=== PATIENT | female | born 1995 | race Caucasian/White ===

== ENCOUNTER 2020-12-16 11:57 | Outpatient (REF) | payer OTHER, SELFPAY | END 2020-12-16 11:58 | disposition home or self-care (01) | LOC: HO.LAB 11:57 | PROVIDERS: Visit Provider Internal Medicine | DX: Z20.822 Contact with and (suspected) exposure to COVID-19 (principal) | CPT/HCPCS: C9803; U0003; U0005 ==

== ENCOUNTER 2021-10-12 10:33 | Outpatient (REF) | payer OTHER, SELFPAY ==
[2021-10-12 11:27] LABS: COVID-19 Test Negative (Negative); IDNOW Serial# 08D9AD1C
== END 2021-10-12 10:34 | disposition home or self-care (01) ==
LOC: HO.LAB 10:33
PROVIDERS: Visit Provider Internal Medicine
DX: Z20.822 Contact with and (suspected) exposure to COVID-19 (principal)
CPT/HCPCS: 87635; C9803

== ENCOUNTER 2022-05-17 08:42 | Emergency (ER) | payer OTHER, SELFPAY ==
[2022-05-17 09:10] VITALS: BP 160/106; PULSE 115; RESP 20; TEMP 36.4; O2SAT 97; BMI 24.5
== END 2022-05-17 13:02 | disposition left against medical advice (07) ==
PROVIDERS: Emergency Provider Emergency Medicine
DX: F32.A Depression, unspecified (principal)
CPT/HCPCS: 99281

== ENCOUNTER 2023-08-30 13:04 | Outpatient (AMB) | payer OTHER, SELFPAY ==
[2023-08-30 13:16] VITALS: BP 120/70; PULSE 76; TEMP 36.6; O2SAT 98; BMI 26.8
--- NOTE | 2023-08-30 13:16 | AM.OFFWIN_ITS ---
Intake Vital Signs 08/30/23 13:16 Height 5 ft 1 in Weight 142 lb BMI 26.8 BP 120/70 Blood Pressure Location Rt brachial Position Sitting Pulse 76 Pulse Source Pulse Oximeter Temp 97.8 F Temp Source Temporal Artery Scan Pulse Oximetry (%) 98 Intake Visit Reasons: [employer] AB pain/Frequent urination Intake Note: pt is here for abd pain with frequent urination. at home negative test Patient Tobacco Use Status: Never used Tobacco Allergies No Known Allergies [No Known Allergies*] Allergy (Verified 08/30/23 13:16) Do you need a note to return to daycare/school/sports/work: No HPI HPI Comments History of Present Illness Details Patient is a 27-year-old female complaining of abdominal pain and watery, yellow diarrhea times 3 days. She states she is having upper central abdominal pain and bloating which is getting worse. She denies any recent antibiotic use or travel outside of the country. She states she normally drinks 82 oz of water per day and eats a relatively healthy diet however, 3 days ago she ate some very rich foods and she just attributed the diarrhea to that but it not resolving with going back to her normal diet. She states anything she eats, she has diarrhea right away. She denies any history of heavy alcohol use or gallstones. She states she took a test at home and it was negative. [facility] Social History (System 01/19/23 @ 13:10 by Ayaka Kellogg) Patient Tobacco Use Status: Never used Tobacco Review of Systems Const All systems reviewed & are unremarkable except as noted in HPI and below Physical Exam Vital Signs: Last Vital Signs Temp 97.8 F 08/30/23 13:16 Pulse 76 08/30/23 13:16 BP 120/70 08/30/23 13:16 Pulse Ox 98 08/30/23 13:16 BMI result Body Mass Index 26.8 Const General: cooperative, healthy appearing, comfortable, no acute distress and well developed Orientation/consciousness: patient oriented x3 Limitations: no limitations HEENT Head: Yes normal to inspection Eyes General: appearance normal, both eyes and all related structures Neck Neck: Yes normal visual inspection and Yes full ROM Resp Effort & Inspection: normal respiratory effort and able to speak in complete sentences GI Inspection: Yes normal to inspection Palpation (GI): Soft to palpation, Tenderness to palpation present (GI) in the epigastrum; Santillan's sign negative and no guarding Auscultation: normal bowel sounds Skin General skin exam: no rashes or lesions noted Neuro General: patient oriented x3 Extrem General: Yes normal to inspection Results AMB Urinalysis, Automated UA Leukoctes 0 Chuckie/uL Last Edit by Slick Mercer CMA on 08/30/23 13:35 UA Nitrite Negative Last Edit by Slick Mercer CMA on 08/30/23 13:35 UA Urobilinogen 0.2 mg/dL Last Edit by Slick Mercer CMA on 08/30/23 13 :35 UA Protein 0 mg/dL Last Edit by Slick Mercer CMA on 08/30/23 13:35 UA pH 6.0 Last Edit by Slick Mercer CMA on 08/30/23 13:35 UA Blood 0 Marko/uL Last Edit by Slick Mercer CMA on 08/30/23 13:35 UA Specific [place] 1.015 Last Edit by Slick Mercer CMA on 08/30/23 13:35 UA Ketone Negative Last Edit by Slick Mercer CMA on 08/30/23 13:35 UA Bilirubin 0 mg/dL Last Edit by Slick Mercer CMA on 08/30/23 13:35 UA Glucose 0 mg/dL Last Edit by Slick Mercer CMA on 08/30/23 13:35 AMB Test Urine AMB Test Urine Negative Last Edit by Slick Mercer CMA on 08/30/23 13:35 Results Reviewed Results Reviewed: test was negative, urinalysis was negative Assessment & Plan Assessment & Plan (1) Abdominal pain in female: Code(s): R10.9 - Unspecified abdominal pain Plan: Vital signs are stable, patient is well-appearing, she was given red flag warning signs and when to seek emergency medical attention. We will get a GI panel, sent home with patient with instructions. Recommended staying hydrated by alternating with Pedialyte and water and BRAT diet explained. Plan See above Orders: Orders AMB Urinalysis Automated Today Z13.9 - Encounter for screening, unspecified AMB HCG Urine Test Today Z13.9 - Encounter for screening, unspecified GI Panel Today R19.7 - Diarrhea, unspecified Coding Level of Care Code New Pt Level 4 (95717) Diagnoses Abdominal pain in female R10.9
== END 2023-08-30 14:26 | disposition home or self-care (01) ==
PROVIDERS: Visit Provider Physician Assistant
DX: R10.9 Unspecified abdominal pain (principal); Z32.02 Encounter for pregnancy test, result negative
CPT/HCPCS: 81003; 81025; 99204

== ENCOUNTER 2023-08-30 17:53 | Outpatient (REF) | payer OTHER, SELFPAY ==
[2023-08-31 09:42] LABS: Adenovirus F 40/41 Not Detected (Not Detect.); Astrovirus Not Detected (Not Detect.); Campylobacter Not Detected (Not Detect.); Cryptosporidium Not Detected (Not Detect.); Cyclospora cayetanensis Not Detected (Not Detect.); E. coli EAEC Not Detected (Not Detect.); E. coli EPEC Not Detected (Not Detect.); E. coli ETEC Not Detected (Not Detect.); E. coli STEC Not Detected (Not Detect.); Entamoeba histolytica Not Detected (Not Detect.); Giardia lamblia Not Detected (Not Detect.); Plesiomonas shigelloides Not Detected (Not Detect.); Rotavirus A Not Detected (Not Detect.); Salmonella Not Detected (Not Detect.); Sapovirus Not Detected (Not Detect.); Shigella sp./EIEC Not Detected (Not Detect.); Vibrio Not Detected (Not Detect.); Vibrio Cholerae Not Detected (Not Detect.); Yersinia enterocolitica Not Detected (Not Detect.)
[2023-09-02 14:19] LABS: Norovirus Stool PCR NOT DETECTED
== END 2023-08-30 17:54 | disposition home or self-care (01) ==
LOC: HO.LNP 17:53
PROVIDERS: Visit Provider Physician Assistant
DX: R19.7 Diarrhea, unspecified (principal)
CPT/HCPCS: 87507

== ENCOUNTER 2023-09-02 10:41 | Outpatient (AMB) | payer OTHER, SELFPAY ==
--- NOTE | 2023-09-02 10:37 | AM.OFFWIN_ITS ---
Intake Vital Signs 09/02/23 10:38 Height 5 ft 1 in Weight 143 lb BMI 27.0 BP 120/76 Blood Pressure Location Lt brachial Position Sitting Temp 97.7 F Temp Source Temporal Artery Scan Intake Visit Reasons: EP ABD pain, blood in stool Intake Note: pt is here today for ABD pain blood in stool started tuesday Patient Tobacco Use Status: Never used Tobacco Allergies No Known Allergies [No Known Allergies*] Allergy (Verified 09/02/23 10:48) Do you need a note to return to daycare/school/sports/work: Yes HPI HPI Comments History of Present Illness Details This is a 27-year-old female with no stated past medical history and no previous abdominal surgeries presenting for evaluation of abdominal pain, bloating, burping and bloody mucus in her stool. Patient was evaluated on March 31 after describing increased diarrhea after eating a barbecue dinner on Father's day. As a result of this consultation the patient had a urinalysis and gastrointestinal panel, both of which were negative for any acute pathology. Patient states that on Father's day she ate significantly richer foods than she usually eats and experienced diarrhea immediately thereafter followed by 6-8 episodes of diarrhea through TuesdayAugust 30. Patient has been taking one immodium a day which slowed down the frequency of her bowel movements and she has only had one episode of formed stool today. Patient is describing upper abdominal pain that is constant accompanied by nausea without vomiting. Patient states her bowel movement this morning with surrounded by bloody mucus. Patient denies any blood noted in the toilet water. [facility] Social History (System 01/19/23 @ 13:10 by Ayaka Kellogg) Patient Tobacco Use Status: Never used Tobacco Review of Systems Const All systems reviewed & are unremarkable except as noted in HPI and below Denies chills, Denies excessive sweating, Denies fever(s) and Denies poor appetite Eyes Reports no additional complaints ENT Reports no additional complaints Card Reports no additional complaints Resp Reports no additional complaints GI Reports abdominal pain (upper), Reports belching, Reports bloating, Reports change in bowel habits and Reports nausea Reports no additional complaints and Denies dysuria Skin/Breast Reports system reviewed and no additional complaints, except as documented Neuro Reports no additional complaints Psych Reports no additional complaints Endo Reports no additional complaints, Denies excessive sweating and Denies polyuria Ryan/Lymph Reports no additional complaints Aller/Immun Reports no additional complaints Physical Exam Vital Signs: Last Vital Signs Temp 97.7 F 09/02/23 10:38 BP 120/76 09/02/23 10:38 BMI result Body Mass Index 27.0 Const General: cooperative, healthy appearing, comfortable, no acute distress, well developed, alert and awake Nutritional Appearance: average body habitus Orientation/consciousness: patient oriented x3 Limitations: no limitations Cardio Rate: regular rate Rhythm: regular rhythm GI Palpation (GI): Soft to palpation and Tenderness to palpation present (GI) in the epigastrum; not in the LUQ, not in the RUQ and with no rebound tenderness Auscultation: normal bowel sounds Skin General skin exam: no rashes or lesions noted Neuro General: patient oriented x3 Psych Appearance: grossly normal Mental Status: mental status grossly normal Thought content: Normal thought content present Insight: Good insight present (Psych) Judgement: Good judgement present (Psych) Assessment & Plan Assessment & Plan (1) Gastroesophageal reflux: Code(s): K21.9 - Gastro-esophageal reflux disease without esophagitis Plan: Patient's current symptoms are consistent with gastroesophageal reflux disease. There is no clinical evidence of biliary colic or concerns for pancreatitis, appendicitis or cholecystitis. Patient is encouraged to follow up with her primary care provider to receive a referral to GI should the bloody mucus in her stool persist. Plan Omeprazole 40 mg daily x2 weeks. Follow up with primary care as needed. Coding Level of Care Code Est Pt Level 3 (46777) Diagnoses Gastroesophageal reflux K21.9 Time Spent (min) 20
[2023-09-02 10:38] VITALS: BP 120/76; TEMP 36.5; BMI 27.0
== END 2023-09-02 12:26 | disposition home or self-care (01) ==
PROVIDERS: Visit Provider Physician Assistant
DX: K21.9 Gastro-esophageal reflux disease without esophagitis (principal)
CPT/HCPCS: 99213